=== PATIENT | male | born 1970 | race Caucasian/White ===

== ENCOUNTER 2022-08-29 13:14 | Outpatient (CLI) | payer OTHER, BC, SELFPAY ==
[2022-08-29 17:37] LABS: Creatine Kinase* 1399 U/L (54-186)
[2022-08-29 17:42] LABS: C Reactive Protein* < 0.5 mg/dL (0.5-1.0)
== END 2022-08-29 13:15 | disposition home or self-care (01) ==
PROVIDERS: PCP Family Medicine; Visit Provider Family Medicine
DX: M79.10 Myalgia, unspecified site (principal); M25.50 Pain in unspecified joint; E78.5 Hyperlipidemia, unspecified; I10 Essential (primary) hypertension; Z11.9 Encounter for screening for infectious and parasitic diseases, unspecified
CPT/HCPCS: 82550; 86140; 86618

== ENCOUNTER 2022-10-20 09:59 | Outpatient (CLI) | payer OTHER, BC, SELFPAY | END 2022-10-20 10:00 | disposition home or self-care (01) | PROVIDERS: PCP Family Medicine; Visit Provider Internal Medicine | DX: Z12.11 Encounter for screening for malignant neoplasm of colon (principal); Z80.0 Family history of malignant neoplasm of digestive organs | CPT/HCPCS: 45378; J2250; J3010 ==

== ENCOUNTER 2023-10-16 13:42 | Outpatient (CLI) | payer OTHER, BC, SELFPAY | END 2023-10-16 13:43 | disposition home or self-care (01) | PROVIDERS: PCP Family Medicine; Visit Provider Family Medicine | DX: E78.2 Mixed hyperlipidemia (principal); Z79.899 Other long term (current) drug therapy; Z12.5 Encounter for screening for malignant neoplasm of prostate | CPT/HCPCS: 80048; 80061; 82550; 84153 ==

== ENCOUNTER 2024-10-02 08:00 | Outpatient (CLI) | payer OTHER, BC, SELFPAY ==
--- OUTSIDE RECORDS SUMMARY | 2024-10-05 06:34 | XMS_ITS | Clinical Summary ---
Author Organization [facility] Address [place], [place] [address] Care Team Providers Care Circuitry Negative Inspector Name Role Phone Christofer Barrow MD Primary Care Provider + Allergies No known active allergies Medications Medication Sig Dispensed Refills Start Date End Date Status aspirin (ECOTRIN) 81 mg enteric coated tablet Take 162 mg by mouth. 12/08/2010 Active Cholecalciferol, Vitamin D3, 2,000 unit tablet Take 2,000 Units by mouth. Active clopidogrel (PLAVIX) 75 mg tablet TAKE ONE TABLET BY MOUTH ONE TIME DAILY 06/20/2018 Active Coenzyme Q10 300 mg cap Take by mouth. 11/30/2008 Active CYANOCOBALAMIN, VITAMIN B-12, ORAL Active ezetimibe (ZETIA) 10 mg tablet 06/19/2018 Active folic acid 1 mg tablet 06/19/2018 Ac tive isosorbide mononitrate (IMDUR) 60 mg extended release tablet 24 hour 06/19/2018 Ac tive lisinopril (PRINIVIL; ZESTRIL) 10 mg tablet 06/20/2018 Act vish metoprolol succinate (TOPROL XL) 50 mg sustained-release tablet 06/20/2018 Active multivitamin (MVI) tablet Take 1 tablet daily Active nitroglycerin (NITROSTAT) 0.[address] 0.4 mg under the tongue every 5 minutes. 12/08/2013 Active omega-3 acid ethyl esters (LOVAZA;OMACOR) 1 gram capsule Take 2 capsules in the morning and 2 capsules at night. Active rosuvastatin (CRESTOR) 40 mg tablet Take 1 tablet by mouth once daily 06/20/2018 Active Encounters Date Type Department Care Team Description 08/13/2024 Telephone [facility] [address] [address] Anusha Flores, PT Failed Appointment (No-show for therapy. Reminded of attendance policy. Asked for call back to discuss scheduling f/u.) 08/06/2024 7:08 AM CDT - 08/06/2024 11:59 PM CDT Hospital Encounter [address] [address] Román Caldwell MD Nightingale, Alexandra, PT 08/06/2024 Travel 07/30/2024 7:07 AM CDT - 07/30/2024 11:59 PM CDT Hospital Encounter [address] [address] Román Caldwell MD Nightingale, Alexandra, PT 07/30/2024 Travel 07/23/2024 Telephone [facility] [address] [address] Anusha Flores, PT Failed Appointment (Pt no-showed for therapy appointment. ) 07/08/2024 7:44 AM CDT - 07/08/2024 11:59 PM CDT Hospital Encounter [address] [address] Román Caldwell MD Vinar, Kaylin J, [employer] PRESIDENT 07/08/2024 Travel from Last 3 Months Immunizations Name Administration Dates Next Due Influenza, IIV4 09/16/2018 Social History Tobacco Use Types Packs/Day Years Used Date Smoking Tobacco: Never Smokeless Tobacco: Never Tobacco Cessation:Counseling Given: Yes Alcohol Use Standard Drinks/Week Comments Yes 1 (1 standard drink = 0.6 oz pur e alcohol) OCC Sex and Gender Information Value Date Recorded Sex Assigned at Not on file Gender Identity Not on file Sexual Orientation Not on file Obstetrics History Last Filed Vital Signs Vital Sign Reading Time Taken Comments Blood Pressure 124/74 09/16/2018 11:14 AM SQL BI DEVELOPER Pulse 68 09/16/2018 11:14 AM [employer] DEVELOPER Temperature 36.8 C (98.3 F) 09/16/2018 11:14 AM [employer] BI DEVELOPER Respiratory Rate 18 09/16/2018 11:1 4 AM [employer] BI DEVELOPER Oxygen Saturation - - Inhaled Oxygen Concentration - - Weight 123.7 kg (272 lb 9.6 oz) 018 11:14 AM SQL BI DEVELOPER Height 192.4 cm (6' 3.75) 09/16/2018 1 1:14 AM SQL BI DEVELOPER Body Mass Index 33.4 09/16/2018 11:14 AM SQL BI DEVELOPER Plan of Treatment Health Maintenance Due Date Last Done Comments Tdap 1983 Depression screening for age 12+ 1984 HIV for age 15-65 1987 Hepatitis C screening for ag e 18-79 1990 Tetanus booster 1992 Colonoscopy through age 75 2017 Lipids for age 45-75 2017 BMI (ht and wt on same day) for age 18+ 09/16/2019 09/16/2018 Zoster (shingles) series for age 50+ (1 of 2) 2022 COVID-19 vaccine series ( season) 2024 10/28/2021, 02/24/2021 Influenza for age 50-64 07/13/2024 09/16/2018 Pneumococcal series for age 6-64 Aged Out No longer eligible b ased on patient's age to complete this topic Care Teams Circuitry Negative Inspector Relationship Specialty Start Date End Date Christofer Barrow MD [address] [place] [address] PCP - General Family Practice 06/11/24
== END 2024-10-02 08:01 | disposition home or self-care (01) ==
LOC: NFLDREF 10-05 06:33
PROVIDERS: PCP Family Medicine; Referring Provider Family Medicine; Visit Provider Family Medicine
DX: Z00.00 Encounter for general adult medical examination without abnormal findings (principal); I10 Essential (primary) hypertension; E78.2 Mixed hyperlipidemia
CPT/HCPCS: 80048; 80061

== ENCOUNTER 2025-03-16 09:30 | Outpatient (CLI) | payer OTHER, BC, SELFPAY | END 2025-03-16 09:31 | disposition home or self-care (01) | LOC: NFLDREF 03-19 23:23 | PROVIDERS: PCP Family Medicine; Referring Provider Family Medicine; Visit Provider Family Medicine | DX: E78.2 Mixed hyperlipidemia (principal); M79.10 Myalgia, unspecified site | CPT/HCPCS: 80061; 82550 ==

== ENCOUNTER 2025-03-19 08:45 | Outpatient (CLI) | payer OTHER, BC, SELFPAY ==
--- NOTE | 2025-03-19 09:00 | CRLHL7_ITS ---
For Patients: As a result of the Century Cures Act, medical imaging exams and procedure reports are released immediately into your electronic medical record. You may view this report before your referring provider. If you have questions, please contact your health care provider. Indication: Headache. Frontal sinus pressure. Technique: Noncontrast CT images of the brain. Comparison: None. Findings: The ventricles and sulci are within normal limits for patient age. No mass effect or midline shift. Cardenas-white differentiation is maintained. No acute intracranial hemorrhage or pathologic extra-axial fluid collection. Intracranial atherosclerotic calcifications. Globes are symmetric. Calvarium is intact. Mild paranasal sinus mucosal thickening. Mastoid air cells are clear. Impression: No acute intracranial hemorrhage or mass effect. Please note that all CT scans at this facility use dose modulation, iterative reconstruction, and/or weight-based dosing when appropriate to reduce radiation dose to as low as reasonably achievable. Dictated by Arthur Monae MD @ 03/19/2025 10:41:37 AM (Electronically Signed)
== END 2025-03-19 08:46 | disposition home or self-care (01) ==
LOC: CT 08:46
PROVIDERS: PCP Family Medicine; Visit Provider Family Medicine
DX: R51.9 Headache, unspecified (principal)
CPT/HCPCS: 70450

== ENCOUNTER 2025-10-09 14:05 | Outpatient (CLI) | payer OTHER, BC, SELFPAY | END 2025-10-09 14:06 | disposition home or self-care (01) | LOC: LKVREF 14:07 | PROVIDERS: PCP Family Medicine; Visit Provider Family Medicine | DX: E78.2 Mixed hyperlipidemia (principal) | CPT/HCPCS: 80061 ==